=== PATIENT | female | born 1965 | race Two or more races ===

== ENCOUNTER → 2016-07-23 | Outpatient (CLI) | payer OTHER | END | disposition home or self-care (01) | LOC: CFH 10:58 | PROVIDERS: ATTEND Obstetrics & Gynecology | DX: Z12.31 Encounter for screening mammogram for malignant neoplasm of breast (principal) | CPT/HCPCS: G0202 ==

== ENCOUNTER → 2018-07-22 | Outpatient (CLI) | payer OTHER ==
[2018-07-22 08:29] LABS: CHLORIDE 112 mmol/L (98-107)
[2018-07-22 08:36] LABS: ANION GAP 5 mmol/L (5-15); CALCIUM 8.9 mg/dL (8.5-10.1); CREATININE 0.56 mg/dL (0.55-1.02)
[2018-07-22 08:37] LABS: ALANINE AMINOTRANSFERASE 28 U/L (12-78); ALBUMIN 3.8 g/dL (3.4-5.0); ALKALINE PHOSPHATASE 96 U/L (45-117); BILIRUBIN,TOTAL 0.5 mg/dL (0.2-1.0); CHOL/HDL RATIO 4.6; CHOLESTEROL, TOTAL 181 mg/dL (140-239); HDL CHOL % 22 % (28-40); HDL CHOLESTEROL (DIRECT) 39 mg/dL (40-60); LDL CHOLESTEROL,CALCULATED 113 mg/dL (54-169); LDL/HDL RATIO 2.9 (0.5-3.0); TOTAL PROTEIN 7.4 g/dL (6.4-8.2); TRIGLYCERIDES 143 mg/dL (50-200); VLDL CHOLESTEROL 29 mg/dL (0-25)
== END | disposition home or self-care (01) ==
LOC: LAB 07:57
PROVIDERS: ATTEND Family Medicine
DX: Z13.1 Encounter for screening for diabetes mellitus (principal); Z13.220 Encounter for screening for lipoid disorders; R10.9 Unspecified abdominal pain
CPT/HCPCS: 36415; 80053; 80061; 83036

== ENCOUNTER 2019-03-24 09:58 | Emergency (ER) | payer OTHER ==
[~2019-03-24] VITALS: Ht 162.6 cm; Wt 80.0 kg
--- NOTE | 2019-03-24 10:09 | NUR ---
PT CODE 250 OUTSIDE ER ENTRANCE. PT STATES SHE WAS ATTEMPTING TO MANIPULATE A POST AND FELL BACKWARD AND HIT THE BACK OF HER HEAD. PT DENIES LOC, DIZZINESS PRIOR TO FALL. PT WITH SMALL ABRASION TO BACK OF HEAD, PT DENIES NAUSEA. PT WITH MILD MARISCAL 4/10
--- NOTE | 2019-03-24 10:54 | NUR ---
AWAITING DC PAPERS/WORK COMP FORMS
[2019-03-24 10:58] VITALS: BP 159/92
--- NOTE | 2019-03-24 10:59 | NUR ---
TASK RN: Patient/Caregiver given discharge instructions and they have confirmed that they understand the instructions. Patient ambulatory with steady gait.
== END 2019-03-24 11:12 | disposition home or self-care (01) ==
LOC: ED 10:54
DX: S16.1XXA Strain of muscle, fascia and tendon at neck level, initial encounter (principal); S00.03XA Contusion of scalp, initial encounter; W19.XXXA Unspecified fall, initial encounter; Y93.89 Activity, other specified; Y92.69 Other specified industrial and construction area as the place of occurrence of the external cause; Y99.8 Other external cause status
CPT/HCPCS: 93005; 99283

== ENCOUNTER 2019-03-30 14:52 | Emergency (ER) | payer OTHER ==
[~2019-03-30] VITALS: Ht 162.6 cm; Wt 84.7 kg
--- NOTE | 2019-03-30 15:31 | NUR ---
PT REPORTS INTERMITTENT FRONTAL MARISCAL X ONE WEEK SP MECHANICAL GLF LAST FRIDAY IN WHICH PT FELL ONTO THE BACK OF HER HEAD. DENIES LOC/MIDLINE NECK OR BACK PAIN/CHANGES IN VISION. +INTERMITTENT NAUSEA. PT PRESENTS A&OX4, AMBULATORY WO ASSISTANCE. GROSS NEURO INTACT. BP/SPO2 MONITORING IN PLACE. PT UPDATED TO POC (CT/RESULTS/RECHECK) AND DEMONSTRATES UNDERSTANDING.
[2019-03-30] MEDS ORDERED: NAPR220C2 PO (15:37)
--- NOTE | 2019-03-30 16:44 | NUR ---
CALLED CT D/T CT NOT COMPLETED, ORDERED AT 1509. TECH STATES IT "HAS NOT BEEN DONE YET". PT UPDATED TO DELAY.
[2019-03-30 16:45] VITALS: BP 130/90
--- NOTE | 2019-03-30 18:17 | NUR ---
DC EDUCATION PROVIDED, PT DEMONSTRATES UNDERSTANDING. PT AMBULATED STEADILY TO DC WITH RN
== END 2019-03-30 18:19 | disposition home or self-care (01) ==
LOC: ED 18:05
DX: S09.90XA Unspecified injury of head, initial encounter (principal); W18.39XA Other fall on same level, initial encounter; Y93.89 Activity, other specified; Y92.89 Other specified places as the place of occurrence of the external cause; Y99.8 Other external cause status
CPT/HCPCS: 70450; 99284

== ENCOUNTER → 2019-07-19 | Outpatient (CLI) | payer OTHER ==
[~2019-07-19] MED LIST: NAPR220C2 PO
== END | disposition home or self-care (01) ==
LOC: LAB 15:03
PROVIDERS: ATTEND Family Medicine
DX: M25.562 Pain in left knee (principal)

== ENCOUNTER → 2020-05-11 | Outpatient (CLI) | payer OTHER ==
[2020-05-11 07:47] LABS: BASOPHILS % (AUTO) 1 % (0-1); EOSINOPHILS % (AUTO) 3 % (1-7); LYMPHOCYTES % (AUTO) 44 % (22-44); MD NO; MEAN CORPUSCULAR HEMOGLOBIN 30.1 pg (27.0-34.8); MEAN CORPUSCULAR HGB CONC 33.6 g/dL (32.4-35.8); MEAN PLATELET VOLUME 10.2 fL (7.4-10.4); MONOCYTES % (AUTO) 7 % (2-9); NEUTROPHILS % (AUTO) 45 % (42-75); PLATELET COUNT 184 x10^3/uL (130-400); RED BLOOD COUNT 4.73 x10^6/uL (3.82-5.3); RED CELL DISTRIBUTION WIDTH 13.4 % (9.6-15.2)
[2020-05-11 07:56] LABS: ALANINE AMINOTRANSFERASE 24 U/L (12-78); ALBUMIN 3.6 g/dL (3.4-5.0); ANION GAP 7 mmol/L (5-15); CALCIUM 8.2 mg/dL (8.5-10.1); CHLORIDE 111 mmol/L (98-107); CHOLESTEROL, TOTAL 176 mg/dL (140-239); CREATININE 0.51 mg/dL (0.55-1.02)
[2020-05-11 08:06] LABS: ALKALINE PHOSPHATASE 84 U/L (45-117); BILIRUBIN,TOTAL 0.5 mg/dL (0.2-1.0); CHOL/HDL RATIO 4.3; HDL CHOL % 23 % (28-40); HDL CHOLESTEROL (DIRECT) 41 mg/dL (40-60); LDL CHOLESTEROL,CALCULATED 99 mg/dL (54-169); LDL/HDL RATIO 2.4 (0.5-3.0); TOTAL PROTEIN 7.4 g/dL (6.4-8.2); TRIGLYCERIDES 178 mg/dL (50-200); VLDL CHOLESTEROL 36 mg/dL (0-25)
== END | disposition home or self-care (01) ==
LOC: LAB 07:29
PROVIDERS: ATTEND Family Medicine
DX: R03.0 Elevated blood-pressure reading, without diagnosis of hypertension (principal); N95.0 Postmenopausal bleeding; R73.9 Hyperglycemia, unspecified
CPT/HCPCS: 36415; 80053; 80061; 82043; 83036; 84443; 85025